=== PATIENT | male | born 1965 | race Caucasian/White ===

== ENCOUNTER 2017-08-05 10:18 | Inpatient (IN) | payer BC ==
[~2017-08-05] VITALS: Ht 180.3 cm; Wt 112.9 kg
[2017-08-05 11:57] LABS: BASOPHIL % 0.4 % (0-2); PLATELET COUNT 162 x10^3mcL (130-400); RED CELL DISTRIBUTION WIDTH 13.6 % (11.5-14.5)
[2017-08-05 11:58] LABS: CALCIUM 8.7 mg/dL (8.5-10.1); CARBON DIOXIDE 28.6 mmol/L (21-32); CHLORIDE SERUM 101 mmol/L (98-107); CREATININE SERUM 0.9 mg/dL (0.7-1.3); GFR1 > 60 mL/min; GLUCOSE SERUM 109 mg/dL (74-106); POTASSIUM SERUM 3.8 mmol/L (3.5-5.1); SODIUM SERUM 138 mmol/L (136-145)
[2017-08-05 12:03] LABS: ALBUMIN 4.2 g/dL (3.4-5.0); ALKALINE PHOSPHATASE 79 U/L (46-116); ALT/SGPT 70 U/L (16-63); AST/SGOT 55 U/L (15-37); BILIRUBIN TOTAL 0.93 mg/dL (0.20-1.00); TOTAL PROTEIN, SERUM 7.9 g/dL (6.4-8.2)
[2017-08-05 12:21] LABS: AMPHETAMINE QUAL UR NONE DETECTED (NEG <=1000)
[2017-08-05 16:24] VITALS: BP 158/103
[2017-08-05 16:35] VITALS: Ht 180.3 cm; Wt 112.9 kg
[2017-08-05 16:49] LABS: T3 TOTAL 1.23 ng/mL
[2017-08-05 16:54] LABS: FREE T4 0.96 ng/dL (0.76-1.46); FREE THYROXINE INDEX 2.7 ug/dL (1.4-4.5); T4(THYROXINE) 7.5 ug/dL (4.7-13.3)
[2017-08-05 17:06] LABS: CHOLESTEROL/HDL RATIO 3.7; MAGNESIUM 1.6 mg/dL (1.8-2.4)
[2017-08-05 17:28] LABS: microscopic required? YES; urine erythrocyte TRACE (NEGATIVE)
[2017-08-05 18:39] VITALS: BP 160/93
[2017-08-05 21:21] VITALS: BP 142/89
[2017-08-06 05:24] VITALS: BP 150/85
[2017-08-06 07:26] LABS: BASOPHIL % 0.5 % (0-2); PLATELET COUNT 158 x10^3mcL (130-400); RED CELL DISTRIBUTION WIDTH 12.9 % (11.5-14.5)
[2017-08-06 07:52] LABS: CALCIUM 8.7 mg/dL (8.5-10.1); CARBON DIOXIDE 27.4 mmol/L (21-32); CHLORIDE SERUM 102 mmol/L (98-107); CREATININE SERUM 0.8 mg/dL (0.7-1.3); GFR1 > 60 mL/min; GLUCOSE SERUM 108 mg/dL (74-106); MAGNESIUM 2.2 mg/dL (1.8-2.4); POTASSIUM SERUM 3.1 mmol/L (3.5-5.1); SODIUM SERUM 139 mmol/L (136-145)
[2017-08-06 09:42] VITALS: BP 159/95
[2017-08-06 14:10] VITALS: BP 158/102
[2017-08-06 17:36] VITALS: BP 164/99
[2017-08-06 20:39] VITALS: BP 156/102
[2017-08-06 21:08] VITALS: BP 135/80
[2017-08-07] VITALS (7 sets, daily range): BP systolic 147–169; BP diastolic 93–113
[2017-08-07 06:13] LABS: BASOPHIL % 0.7 % (0-2); PLATELET COUNT 153 x10^3mcL (130-400); RED CELL DISTRIBUTION WIDTH 13.6 % (11.5-14.5)
[2017-08-07 06:29] LABS: CALCIUM 8.7 mg/dL (8.5-10.1); CARBON DIOXIDE 27.1 mmol/L (21-32); CHLORIDE SERUM 106 mmol/L (98-107); CREATININE SERUM 0.8 mg/dL (0.7-1.3); GFR1 > 60 mL/min; GLUCOSE SERUM 97 mg/dL (74-106); MAGNESIUM 2.1 mg/dL (1.8-2.4); PHOSPHOROUS 3.8 mg/dL (2.5-4.9); POTASSIUM SERUM 3.6 mmol/L (3.5-5.1); SODIUM SERUM 140 mmol/L (136-145)
[2017-08-07] MEDS ORDERED: ZES10 PO (10:21)
[2017-08-07] MEDS ORDERED: CAT0.1 PO (10:21)
== END 2017-08-07 11:52 | disposition home or self-care (01) | DRG 304 ==
LOC: ED 10:18 → DU 15:21
PROVIDERS: Emergency Medicine; ADMIT Family Medicine
DX: I16.0 Hypertensive urgency (principal); N17.0 Acute kidney failure with tubular necrosis; F10.239 Alcohol dependence with withdrawal, unspecified; E83.42 Hypomagnesemia; E87.6 Hypokalemia; R31.9 Hematuria, unspecified; E78.5 Hyperlipidemia, unspecified; E66.9 Obesity, unspecified; Z68.34 Body mass index [BMI] 34.0-34.9, adult; I11.9 Hypertensive heart disease without heart failure
CPT/HCPCS: 83880; 84439; 90658; G0480; J3475; J3480; J3490; J7030; Q0092